=== PATIENT | female | born 1980 | race Caucasian/White ===

== ENCOUNTER 2019-07-30 07:16 | Emergency (ER) | payer MEDICAID ==
[2019-07-30 07:37] VITALS: BP 125/83; PULSE 90
--- NOTE | 2019-07-30 08:02 | EDM.PDOC ---
ED HPI GENERAL MEDICAL PROBLEM - General Chief Complaint: Genitourinary Problem Stated Complaint: UTI??? Time Seen by Provider: 07/30/19 07:40 Source of Information: Reports: Patient History Limitations: Reports: No Limitations - History of Present Illness INITIAL COMMENTS - FREE TEXT/NARRATIVE: 39-year-old female with dysuria and increased urinary frequency for the last several days, now developing some low back pain. No fevers or chills, no nausea or vomiting. She has had urinary tract infections in the past. Onset: Gradual Duration: Day(s): (3 to 4 days) Location: Reports: Back Associated Symptoms: Denies: Chest Pain, Fever/Chills, Nausea/Vomiting, Shortness of Breath - Related Data Allergies Allergy/AdvReac Type Severity Reaction Status Date / Time No Known Allergies Allergy Verified 07/30/19 07:41 Home Meds: Home Meds Levonorgestrel [Mirena] 1 device IMPLANT ASDIRECTED 07/23/15 [History] Past Medical History - Past Health History Medical/Surgical History: Denies Medical/Surgical History Genitourinary History: Reports: Pyelonephritis [employer] History: Reports: , Spontaneous , Therapeutic - Past Surgical History Other Musculoskeletal Surgeries/Procedures:: left ankle surgery for fx. Social & Family History - Tobacco Use Smoking Status *Q: Light Tobacco Smoker Years of Tobacco use: 22 Packs/Tins Daily: 0.5 - Caffeine Use Caffeine Use: Reports: Soda Other Caffeine Use: 6 cans of pop per day - Recreational Drug Use Recreational Drug Use: No ED ROS GENERAL - Review of Systems Review Of Systems: See Below Constitutional: Denies: Fever, Chills, Malaise Respiratory: Denies: Shortness of Breath Cardiovascular: Denies: Chest Pain GI/Abdominal: Denies: Abdominal Pain, Nausea, Vomiting : Reports: Dysuria, Frequency, Urgency Musculoskeletal: Reports: Back Pain Skin: Reports: No Symptoms ED EXAM, RENAL/ - Physical Exam Exam: See Below Exam Limited By: No Limitations General Appearance: Alert, No Apparent Distress Head: Atraumatic Respiratory/Chest: No Respiratory Distress, Lungs Clear Cardiovascular: Regular Rate, Rhythm Back Exam: CVA Tenderness (R), CVA Tenderness (L) (Equivocal CVA tenderness to palpation bilaterally) Neurological: Alert, Oriented Course - Vital Signs Last Recorded V/S: Last Vital Signs Temp 96.1 F 07/30/19 07:40 Pulse 90 07/30/19 07:40 Resp 16 07/30/19 07:40 BP 125/83 07/30/19 07:40 Pulse Ox 100 07/30/19 07:40 - Orders/Labs/Meds Orders: Active Orders 24 hr Category Date Time Status CULTURE URINE [RM] Stat Lab 07/30/19 07:57 Received Labs: Laboratory Tests 07/30/19 Range/Units 07:46 Urine Color Yellow (YELLOW) Urine Appearance Cloudy A (CLEAR) Urine pH 6.0 (5.0-8.0) Ur Specific [place] 1.020 (1.008-1.030) Urine Protein 100 H (NEGATIVE) mg/dL Urine Glucose (UA) Negative (NEGATIVE) mg/dL Urine Ketones Negative (NEGATIVE) mg/dL Urine Occult Blood Small H (NEGATIVE) Urine Nitrite Positive H (NEGATIVE) Urine Bilirubin Negative (NEGATIVE) Urine Urobilinogen 0.2 (0.2-1.0) EU/dL Ur Leukocyte Esterase Moderate H (NEGATIVE) Urine RBC 5-10 H (0-5) Urine WBC 75-100 H (0-5) Ur Epithelial Cells Moderate Amorphous Sediment Not seen Urine Bacteria Many Urine Mucus Not seen - Re-Assessments/Exams Free Text/Narrative Re-Assessment/Exam: 07/30/19 08:01 UA is positive with many bacteria, white cells, and positive nitrate. A culture was initiated and the patient was started on Cipro 500 mg twice daily for 5 days. She can return if worsening despite treatment, we will be in touch with her with culture results when available. Departure - Departure Time of Disposition: 08:22 Disposition: Home, Self-Care 01 Clinical Impression: Cystitis - Discharge Information Instructions: Urinary Tract Infection, Adult Referrals: PCP,None [Primary Care Provider] - Forms: ED Department Discharge Care Plan Goals: Take Cipro 500 twice daily for 5 full days. Recheck if not improving in 2 to 3 days, or return sooner if worsening such as fever or vomiting the medication. - My Orders Last 24 Hours: My Active Orders 07/30/19 07:57 CULTURE URINE [RM] Stat - Assessment/Plan Last 24 Hours: My Active Orders 07/30/19 07:57 CULTURE URINE [RM] Stat
== END 2019-07-30 08:23 | disposition home or self-care (01) ==
LOC: JP.ED 07:16
DX: N30.90 Cystitis, unspecified without hematuria (principal); F17.210 Nicotine dependence, cigarettes, uncomplicated
CPT/HCPCS: 81001; 87086; 87088; 87186; 99283

== ENCOUNTER 2022-09-27 04:38 | Emergency (ER) | payer MEDICAID ==
[2022-09-27] MEDS ORDERED: Sodium Chloride 0.9% 10 ML Syringe FLUSH PRN (05:01)
[2022-09-27] MEDS ORDERED: Sodium Chloride 0.9% 1,000 ML IV ONE (05:01)
[2022-09-27] MEDS ORDERED: fentaNYL 100 MCG/2 ML SDV IVPUSH ONE (05:02)
[2022-09-27] MEDS ORDERED: Ketorolac 30 MG/ML SDV IVPUSH ONE (05:14)
[2022-09-27 05:33] LABS: ESTIMATED GFR 95 mL/min (>60); TROPONIN I HIGH SENSITIVITY 6.4 pg/mL (<=60.3)
[2022-09-27 07:00] VITALS: BP 104/53; PULSE 108
== END 2022-09-27 07:30 | disposition home or self-care (01) ==
LOC: JP.ED 04:38
DX: J18.9 Pneumonia, unspecified organism (principal); Z72.0 Tobacco use
CPT/HCPCS: 36415; 71045; 80053; 80305; 83605; 84145; 84484; 85025; 85379; 86140; 93005; 93010; 96361; 96374; 99283; 99285; J1885; J3490; J7030

== ENCOUNTER 2024-03-02 23:29 | Emergency (ER) | payer SELFPAY ==
[2024-03-02 23:46] VITALS: BP 151/98; PULSE 84
[2024-03-03] MEDS: Tetracaine HCl/PF 0.5% 4 ML Bottle EYERT ONE (00:10)
[2024-03-03] MEDS: Mineral Oil/Petrolatum Ophth Oint 3.5 GM Tube EYERT ONE (02:46)
[2024-03-03] MEDS: Dexamethasone/Tobramycin 0.1-0.3% Ophth Oint 3.5 GM Tube EYERT ONE (02:48)
== END 2024-03-03 02:53 | disposition home or self-care (01) ==
LOC: JP.ED 23:29
DX: H10.9 Unspecified conjunctivitis (principal); Z79.899 Other long term (current) drug therapy
CPT/HCPCS: 99283; A9270

== ENCOUNTER 2024-09-16 09:02 | Emergency (ER) | payer SELFPAY ==
[2024-09-16 09:18] VITALS: BP 141/87; PULSE 74
[2024-09-16] MEDS: Ketorolac 30 MG/ML SDV IM ONE (09:43)
[2024-09-16] MEDS: Prochlorperazine 10 MG/2 ML SDV IM ONE (09:43)
[2024-09-16 09:47] LABS: APPEARANCE,URINE SLIGHTLY CLOUDY (CLEAR); BILIRUBIN,URINE NEGATIVE (NEGATIVE); COLOR,URINE YELLOW (YELLOW); GLUCOSE,URINE NEGATIVE (NEGATIVE); KETONES,URINE TRACE mg/dL (NEGATIVE); LEUKOCYTE ESTERASE,URINE SMALL (NEGATIVE); NITRITE,URINE NEGATIVE (NEGATIVE); OCCULT BLOOD,URINE NEGATIVE (NEGATIVE); PROTEIN,URINE NEGATIVE (NEGATIVE); UROBILINOGEN,URINE 0.2 EU/dL (0.2-1.0)
[2024-09-16 09:55] LABS: AMORPHOUS SEDIMENT,URINE MODERATE; BACTERIA,URINE MODERATE; EPITHELIAL CELLS,URINE MANY; MUCUS,URINE RARE; RBC,URINE 0-5 (0-5)
[2024-09-16 09:56] LABS: AMPHETAMINES SCREEN, URINE PRESUMPTIVE POSITIVE (NEGATIVE); BARBITURATE SCREEN,URINE NEGATIVE (NEGATIVE); BENZODIAZEPINES SCREEN,URINE NEGATIVE (NEGATIVE); METHADONE SCREEN, URINE NEGATIVE (NEGATIVE); METHAMPHETAMINES SCREEN, URINE PRESUMPTIVE POSITIVE (NEGATIVE); OXYCODONE SCREEN,URINE NEGATIVE (NEGATIVE); PROPOXYPHENE SCREEN,URINE NEGATIVE (NEGATIVE); THC SCREEN,URINE 50 NG/ML NEGATIVE (NEGATIVE)
== END 2024-09-16 10:27 | disposition home or self-care (01) ==
LOC: JP.ED 09:02
DX: N39.0 Urinary tract infection, site not specified (principal)
CPT/HCPCS: 80305; 81001; 81025; 87086; 96372; 99283; J0780; J1885

== ENCOUNTER 2025-04-19 14:08 | Emergency (ER) | payer MEDICAID, OTHER ==
[2025-04-19 14:26] VITALS: BP 139/94
[2025-04-19 14:36] VITALS: PULSE 76
== END 2025-04-19 15:03 ==
LOC: JP.ED 14:08
DX: N81.4 Uterovaginal prolapse, unspecified (principal); F17.210 Nicotine dependence, cigarettes, uncomplicated
CPT/HCPCS: 99284